=== PATIENT | female | born 1995 | race Caucasian/White ===

== ENCOUNTER 2025-03-14 08:04 | Emergency (ER) | payer OTHER, SELFPAY ==
--- NOTE | ~2025-03-14 | XR_ITS ---
HISTORY: 1st toe nail injury, dropped table on foot today COMPARISON: None TECHNIQUE: 3 views of the left foot were performed FINDINGS: Acute fracture of the distal phalanx of the great toe of the left foot. This is within the tuft, without significant callus formation. Overlying soft tissue swelling is also noted. The base of the fifth metatarsal is intact. No calcaneal spur is noted. No additional soft tissue swelling is present. IMPRESSION: Acute fracture of the distal phalanx of the great toe the left foot, as detailed above Reviewed, dictated and finalized at location A. IMPRESSION: Acute fracture of the distal phalanx of the great toe the left darryl t, as detailed above
[2025-03-14 08:21] VITALS: BP 158/83; PULSE 93; RESP 18; TEMP 36.6; O2SAT 100
--- NOTE | 2025-03-14 08:25 | ED.WOUNDLAC ---
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 States while at work she dropped a heavy wooden table onto the foot. Endorses pain and bleeding from the left great toe. Reports painful ROM. No treatment captain [employer]. Unsure of last tetanus. Related Data Home Medications ?Medication ?Instructions ?Recorded ?Confirmed ?Last Taken ?Type omeprazole 40 mg capsule,delayed 40 mg PO DAILY 03/14/25 03/14/25 Unknown History release Allergies Allergy/AdvReac Type Severity Reaction Status Date / Time No Known Allergies Allergy Verified 03/14/25 08:16 Review of Systems Review of Systems: CONSTITUTIONAL: Denies body aches, fever, chills CARDIOVASCULAR: Denies chest pain, palpitations, or edema. RESPIRATORY: Denies cough or dyspnea. SKIN: Denies rash, itching, or wounds. MUSCULOSKELETAL: reports pain, bleeding from left foot NEUROLOGIC: Denies numbness, tingling, or weakness. All systems reviewed & are unremarkable except as noted in HPI and below PMFSH Comments At time of signature, I have reviewed and agree with nursing past medical, surgical, social and family history unless otherwise noted. Please see nursing chart for further information. There is no relevant family history pertinent to the presenting complaint Exam Narrative: GENERAL: Appears in pain, no distress CHEST: Speaks in full sentences. No respiratory distress. HEART: Regular rate and rhythm. Normal and equal peripheral pulses. EXTREMITIES: Left foot great toenail with traumatic onycholysis proximal nail bed, otherwise nail intact to bed. Active bleeding around base of cuticle. Remaining nail is intact, no nail laceration. 2nd toe with mild swelling and bruising noted as well. No foot swelling or bruising. pulse palpable and equal bilaterally, skin warm, dry, pink. Capillary refill less than 3 seconds. SKIN: Warm, dry NEURO: Alert and oriented x3. PSYCH: Normal mood and affect Course Course Emergency Course: Patient is aware of diagnosis, understands and agrees to treatment plan. Anticipatory guidance given. Patient agrees to follow-up as directed and is aware of reasons to seek care at the emergency department. Portions of this record may have been created with voice recognition software Level of Care: Express Care Visit Vital Signs Vital signs: Vital Signs Temperature 97.9 F 03/14/25 08:21 Pulse Rate 93 03/14/25 08:21 Respiratory Rate 18 03/14/25 08:21 Blood Pressure 158/83 H 03/14/25 08:21 Pulse Oximetry 100 03/14/25 08:21 Temperature 97.9 F 03/14/25 08:21 Pulse Rate 93 03/14/25 08:21 Respiratory Rate 18 03/14/25 08:21 Blood Pressure 158/83 H 03/14/25 08:21 Pulse Oximetry 100 03/14/25 08:21 Reviewed Procedures Laceration left great toe: Date: 03/14/25 Description: other (nail injury) ====== Skin Level ====== ====== Subcutaneous Layer ====== ====== Muscle Layer ====== ====== Tendon Layer ====== Dressing: Foot soaked and cleansed with alcohol. Lidocaine 1% 2mL, local anesthesia. Subungual hematoma noted, pressure applied to digit, moderate amount of bleeding noted. Unsuccessful Attempt to completely reduce the nail under the skin of base. Bleeding is slowed. Dressing applied with RANDALL. MDM - Wound/Laceration MDM Narrative Medical decision making narrative: Discussed physical exam findings and xray. Tuft fx of distal phalanx with traumatic nail onycholysis of proximal nail bed. Foot cleansed and soaked in warm water with skintegrity. Tetanus updated. Discussed with ER and contacted the office of solution mixer ortho Dr Milner. Awaiting return call. IM Ancef 1g given. Unable to reach Dr Milner. Dr Gautam took the call and recommended applying a dressing and f/u with fisher net. RANDALL and telfa applied. Dr Peres will see pt 03/17 at 2:15 Post op shoe and crutches provided. Advised supportive measures and signs/symptoms to go to the ER. Pt is appropriate for outpt treatment and f/u. Differential Diagnosis Differential diagnosis: Likely laceration, abrasion, avulsion of skin and other (contusion, open fracture, closed fracture, onycholysis of nail) Imaging Data Radiologist's impression: Patient: Mattie Carrasco : 1995 MR#: [id number] Age: 29 Acct:[id number] Loc: [facility] ADM Date: 03/14/25Attending Dr: Ordering Physician: Britt Figueroa APRN Date of Service: 03/14/25 Procedure(s): XR foot LT min 3V Accession Number(s): [id number] cc: Britt Figueroa APRN; FORMS ANALYST PHYSICIAN~ HISTORY: 1st toe nail injury, dropped table on foot today COMPARISON: None TECHNIQUE: 3 views of the left foot were performed FINDINGS: Acute fracture of the distal phalanx of the great toe of the left foot. This is within the tuft, without significant callus formation. Overlying soft tissue swelling is also noted. The base of the fifth metatarsal is intact. No calcaneal spur is noted. No additional soft tissue swelling is present. IMPRESSION: Acute fracture of the distal phalanx of the great toe the left foot, as detailed above Discharge Plan Discharge Clinical Impression: Fracture of toe Patient Disposition: Home Condition: Stable Instructions: Antibiotic Form, Toe Fracture (ED) Additional Instructions: Rest, ice and elevate the left foot Motrin 600mg every 8 hours, as needed, for pain (take with food). Tylenol 1000mg every 8 hours. Wear the post op shoe when up with crutches. Use to crutches to reduce bearing weight on the foot. Go to the ER immediately for increased pain, tingling/numbness, swelling, redness, etc Follow up with Dr Peres (fisher net) for further evaluation Appointment scheduled 03/17/25 at 2:15 [address] [facility] [address], [place] [phone] Bring the disc and insurance card. Patient Language: Greenlandic Prescriptions: New amoxicillin-pot clavulanate 875-125 mg tablet 1 tablet PO Q12H 7 Days Qty: 14 0RF Rx Instructions: start 03/15 No Action omeprazole 40 mg capsule,delayed release(DR/EC) 40 mg PO DAILY Follow-up/Referrals: PHYSICIAN,FORMS ANALYST [Primary Care Provider] - Stand Alone Forms: Work/School Release IP Time of Disposition: 11:56
[2025-03-14] MEDS: TETANUS,DIPHTHERIA,AC PERTUSSIS ADULT (0.5 ML) BOOSTRIX IM (08:51)
[2025-03-14] MEDS: LIDOCAINE 1% LOCAL INJ 2 ML AMPUL 4 ML INFILTRATE (08:52)
[2025-03-14] MEDS: ACETAMINOPHEN 500 MG TABLET 1000 MG PO (10:14)
== END 2025-03-14 12:07 | disposition home or self-care (01) ==
PROVIDERS: Emergency Provider Nurse Practitioner Family
DX: S92.422A Displaced fracture of distal phalanx of left great toe, initial encounter for closed fracture (principal); W20.8XXA Other cause of strike by thrown, projected or falling object, initial encounter; Z23 Encounter for immunization
CPT/HCPCS: 73630; 90471; 90715; 96372; 99214; A9270; G0463; J0690; J2003

== ENCOUNTER 2025-04-13 12:23 | Emergency (ER) | payer OTHER, SELFPAY ==
--- NOTE | 2025-04-13 | CONSULT_PTH ---
PATIENT: Mattie Carrasco LOC: [facility] U#:[id number] AGE/SX: 29/F ROOM: RE04/13/[address]: Toni Ren MD : 1995 BED: DIS: 04/13/2025 SPEC #: [id number] RECD: 04/13/25 13:48 STATUS: ANAYA RENathan #: [id number] SWETHA: 04/13/25 00:[address]: Toni Ren DEPT: [facility] Consult RECD BY: Tasha Sullivan MLT ENTERED: 04/13/25 13:48 SP TYPE: Consult OT DR: UNKNOWN,DOCTOR Tissues: A - Peripheral Smear Procedures: Hematology Consult
--- NOTE | ~2025-04-13 | CT_ITS ---
EXAMINATION: CT abdomen pelvis w con, 04/13/2025 13:50 CDT HISTORY: Diffuse abdominal pain COMPARISON: No comparisons available. TECHNIQUE: CT scan of the abdomen and pelvis was performed with contrast. Isovue 300, 92cc injected IV. One or more of the following dose reduction techniques were used: automated exposure control, adjustment of the mA and/or kV according to patient size, use of iterative reconstruction technique. Unless otherwise stated, incidental findings do not require dedicated follow up imaging FINDINGS: CT abdomen: LUNG BASES: The lung bases are clear. The visualized portions of the heart and pericardium are unremarkable. LIVER: The main portal vein is patent. There is no intrahepatic biliary duct dilatation. SPLEEN: Unremarkable, no splenomegaly. KIDNEYS: Right Kidney: There is severe thinning of the right kidney renal cortex with severe probable chronic right-sided hydronephrosis and hydroureter ureter or free fluid in the pelvis. Right kidney the distal ureter is not well appreciated. Left Kidney: Left kidney not identified, no abnormality in the left renal bed. ADRENAL GLANDS: Unremarkable. PANCREAS: Unremarkable. GALLBLADDER/BILIARY: Minimal cholelithiasis. CBD normal. STOMACH AND ESOPHAGUS: Visualized stomach and esophagus within normal limits. BOWEL/MESENTERY: Moderate fecal content, no colitis or diverticulitis. No inflammatory changes noted in the mesentery especially in the right lower quadrant. A normal-appearing appendix is not identified. There are postsurgical changes noted in the bowel with some dilated small bowel loops in the pelvis the largest measuring 3.5 cm with distal decompressed small bowel loops noted. There are some mildly hyperemic distal small bowel loops noted. ADENOPATHY/RETROPERITONEUM: No lymphadenopathy. AORTA/VASCULATURE: Normal caliber aorta. FREE FLUID OR FREE AIR: None. CT pelvis: SOLID ORGANS/REPRODUCTIVE: There is no adnexal mass identified. BLADDER: The bladder is not identified. OSSEOUS STRUCTURES: No acute osseous abnormality.No suspicious lesions. OVERLYING SOFT TISSUES: Unremarkable. IMPRESSION: 1. Probable chronic severe right-sided hydronephrosis and hydroureter ureter, the distal ureter is not well visualized and a distal stricture is not excluded. 2. Dilated loops of small bowel with inflammatory changes noted in the right lower quadrant. Findings are concerning for small bowel obstruction. The appendix is not identified however there is no evidence of acute appendicitis. Follow-up is recommended to assess. Reviewed, dictated and finalized at location A. IMPRESSION: 1. Probable chronic severe right-sided hydronephrosis and hydroureter ureter, t he distal ureter is not well visualized and a distal stricture is not excluded. 2. Dilated loops of small bowel with inflammatory changes noted in the right lo wer quadrant. Findings are concerning for small bowel obstruction. The appendix is not identified however there is no evidence of acute appendicitis. Follow-u p is recommended to assess.
[2025-04-13 12:21] VITALS: BP 133/71; PULSE 115; RESP 18; TEMP 37.1; O2SAT 100
[2025-04-13 13:04] LABS: BEDSIDEPREGUCG Negative (Negative)
[2025-04-13] MEDS: SODIUM CHLORIDE 0.9% IV 2,000 ML 999 ML IV CONT (13:07)
[2025-04-13] MEDS: ONDANSETRON INJ 4 MG/2 ML VIAL IV PUSH (13:07)
[2025-04-13] MEDS: HYDROmorphone HCL INJ (*CRX) 1 MG/ML SYR 0.5 MG IV PUSH (13:07)
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
--- OUTSIDE RECORDS SUMMARY | 2025-04-13 13:08 | XMS_ITS | Clinical Summary ---
Author Organization [facility] Address [address] [place] [address] Care Team Providers Care Per Assessment Nurse Name Role Phone Cheng Koenig MD Primary Care Provider [phone] Allergies No known active allergies Medications albuterol HFA (PROVENTIL HFA,VENTOLIN HFA,PROAIR HFA) 90 mcg/actuation inhaler Inhale 2 puffs every 4 (four) hours as needed 9 Active cyclobenzaprine (FLEXERIL) 5 mg tablet 1 Active PreviDent 5000 Booster Plus 1.1 % paste 1 Active potassium chloride ER 20 mEq CR tablet 1 Active clindamycin (CLINDAGEL) 1 % gel Apply topically 2 (two) times a day 30 g 2 1 Active Additional Information Patient not taking.Reported on 11/08/2022 ergocalciferol (VITAMIN D) 50,000 unit capsuleIndicati ons:Vitamin D deficiency TAKE 1 CAPSULE BY MOUTH 1 TIME A WEEK 12 capsule 3 2 Active Additional Information Patient not taking.Reported on 11/08/2022 testosterone 12.5 mg/ 1.25 gram (1 %) gel in metered-dose pumpIndications :Gender dysphoria Place 50 mg on the skin daily Or 4 pumps. 2 bottles needed per month. 150 g 3 2 Active AMLODIPINE BENZOATE ORAL Take by mouth Ac tive Active Problems Problem Noted Date Diagnosed Date Stage 3 chronic kidney disease 11/08/2022 Hormone replacement therapy (HRT) 04/13/2021 Gender dysphoria 04/13/2021 History of urinary diversion procedure Occlusion of ureter 08/17/2015 Hydronephrosis 08/05/2015 Flank pain 05/17/2015 Absence of kidney 05/17/2015 Malposition of ureter 09/02/2014 Surgical History Surgery Date Site/Laterality Comments SC NEPHRECTOMY W/PRTL URETER ECT OPEN RIB RESCJ RAD Radical Nephrectomy - (Added by Conv) SC PERQ NL/PL LITHOTRP COMPL EX >2 CM SALES REPRESENTATIVE MEATS LOCATIONS Percutaneous Lithotomy For Stone Over 2cm. 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 Family History Medical History Relation Name Comments Hypertension Mother Family history of hypertension - (Added by Conv) Relation Name Status Comments Mother Social History Tobacco Use Types Packs/Day Years Used Date Smoking Tobacco: Never Smokeless Tobacco: Never Alcohol Use Standard Drinks/Week Comments No 0 (1 standard drink = 0.6 oz pur e alcohol) Personal Safety Answer Date Recorded Getting School Help Needed Not on file 09/01 Comments Unknown Sex and Gender Information Value Date Recorded Sex Assigned at Not on file 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 Gender Identity Transgender Male 06/19/2021 8:41 AM CDT Sexual Orientation Not on file Obstetrics History Last Filed Vital Signs Vital Sign Reading Time Taken Comments Blood Pressure 135/82 11/08/2022 10:20 AM CDT Pulse 70 11/08/2022 10:20 AM CDT Temperature 36.7 C (98.1 F) 12/12/2021 8:49 AM CDT Respiratory Rate 18 03/16/2018 3:50 AM CDT Oxygen Saturation 100% 11/09/2020 11:23 AM CDT Inhaled Oxygen Concentration - - Weight 55.4 kg (122 lb 3.2 oz) 11/08/2022 10:20 AM CDT Height 157.5 cm (5' 2) 11/08/2022 10:20 AM CDT Body Mass Index 22.35 11/08/2022 10:20 AM CDT Plan of Treatment Health Maintenance Due Date Last Done Comments Cervical Cancer Screening 1995 Depression Screening 1995 Hepatitis C Screening 1995 Varicella Vaccines (2 of 2 - 2-dose childhood series) 07/26/2002 05/03/2002 Regular Well Visit/Exam 18-64 2015 DTaP/Tdap/Td Vaccine (7 - Td or Tdap) 03/24/2022 03/24/2012, 05/25/2003, 11/11/2000, Additional history exists HPV Vaccines (1 - 3-dose SCDM series) 2024 Influenza Vaccine (#1) 2025 Hepatitis B Screening Completed 04/16/2000 , 10/25/1999, 01/16/1998 Pneumococcal vaccine <65 Aged Out No longer eligible based on patient's age to complete this topic Insurance [employer] OPEN ACCESS [facility] Travel [place] Advance [place] For more information, please contact: [phone] Documents on File Type Date Recorded Patient Drywall Finisher Foreman Expl anation ADVANCE DIRECTIVE 09/02/2018 10:39 AM Adva nce Directive Checklist ADVANCE DIRECTIVE 09/02/2018 10:39 AM Adva nce Directive Checklist ADVANCE DIRECTIVE 03/16/2018 2:46 AM Care Teams Per Assessment Nurse Relationship Specialty Start Date End Date Cheng Koenig MD [address] [place] [address] PCP - General Family Medicine 09/02/18
--- OUTSIDE RECORDS SUMMARY | 2025-04-13 13:08 | XMS_ITS | Encounter Summary ---
Author Organization [facility] Healthcare Address [address] [place] [address] Care Team Providers Care Penciller Name Role Phone Cheng Koenig MD Primary Care Provider [phone] Encounter Details Date Type Department Care Team (Late st Contact Info) Description 11/14/2020 Telephone [facility] [place] [address] Willow Souza, RDMS Social History Tobacco Use Types Packs/Day Years Used Date Smoking Tobacco: Never Smokeless Tobacco: Never Alcohol Use Standard Drinks/Week Comments No 0 (1 standard drink = 0.6 oz pur e alcohol) Comments Unknown Sex and Gender Information Value Date Recorded Sex Assigned at Not on file 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
[2025-04-13 13:19] LABS: Hematocrit 42.1 % (37.0-47.0); Hemoglobin 13.3 g/dL (12.0-15.0); Mean Corpuscular HGB Conc 31.6 g/dl (32-36); Mean Corpuscular Hemoglobin 30.3 pg (26-34); Mean Corpuscular Volume 95.9 fl (80-100); Platelet Count Result 323 k/mm3 (150-375); Red Blood Count 4.39 M/mm3 (4.2-5.4); White Blood Count 9.6 K/mm3 (4.5-10.0)
[2025-04-13 13:25] LABS: Add Urine Microscopic? YES; Appearance Urine Cloudy (Clear); Glucose Urine UA Negative (Negative); Leukocyte Esterase Ur 3+ LEU/UL (Negative); Nitrate Urine Positive (Negative); Non Pathogenic Casts 0-2; Specific Grav Ur 1.008 (1.001-1.035)
[2025-04-13 13:37] LABS: Alanine Aminotransferase 13 U/L (6-35); Albumin Level 4.0 g/dL (3.5-5.1); Alkaline Phosphatase 187 U/L (38-126); Anion Gap 13 mmol/L (4-12); Aspartate Amino Transferase 22 U/L (14-36); Bilirubin,Total 0.9 mg/dL (0.2-1.3); Blood Urea Nitrogen 14 mg/dL (7-17); Calcium 8.7 mg/dL (8.4-10.2); Carbon Dioxide 12 mmol/L (22-30); Chloride 115 mmol/L (98-107); Estimated CRCL calculation 39 ml/min; Estimated Glomerular Filt Rate 39; Glucose 91 mg/dL (65-110); Lipase 55 U/L (23-300); Potassium 4.2 mmol/L (3.4-5.0); Sodium 140 mmol/L (137-145); Total Protein 6.8 g/dL (6.3-8.2)
[2025-04-13 13:45] LABS: Band Neutrophils Percent 22 % (0-6); Lymphocytes Absolute Manual 0.48 K/mm3 (1.1-4.5); Lymphocytes Percent Manual 5 % (18-44); Monocytes Absolute Manual 0.48 K/mm3 (0.1-0.90); Monocytes Percent Manual 5 % (3-9); Neutrophils Absolute Manual 8.64 K/mm3 (1.3-6.7); Neutrophils Percent Manual 68 % (46-73); Schistocytes None Seen; Total Cells Counted 100
--- NOTE | 2025-04-13 13:48 | ED.GENADULT ---
HPI - General Adult General Chief complaint: Abdominal Pain Stated complaint: abd pain Time Seen by Provider: 04/13/25 12:51 History of Present Illness HPI narrative: This is a 29-year-old female with history of artificial bladder and 1 kidney presenting for abdominal pain. Patient says that she woke up from sleep this morning with a sharp pain in the epigastric area that radiates bilaterally down the sides of her belly into her pelvis. Pain is severe and constant. She then a self cathed her artificial bladder through her belly button which is normal for her with 1 L urine. The urine did not look cloudy or have a foul smell. She does not have any flank pain. She had 2 episodes of brown vomit. No diarrhea. No fevers chest pain or difficulty breathing. Last bowel movement was 2 days ago which patient said was a mix of constipation diarrhea. Patient says she is still passing gas. Patient had a toe surgery approximately 2 weeks ago and has pending. She was seen by her surgeon yesterday and everything is healing well without signs of infection. Patients urologist is Dr. Ness at [facility]. He peformed her ureter/bladder reconstruction. Related Data Home Medications ?Medication ?Instructions ?Recorded ?Confirmed ?Last Taken ?Type omeprazole 40 mg capsule,delayed 40 mg PO DAILY 03/14/25 03/14/25 Unknown History release Allergies Allergy/AdvReac Type Severity Reaction Status Date / Time No Known Allergies Allergy Verified 04/13/25 12:42 Exam Narrative: APPEARANCE: Patient appears uncomfortable Head: atraumatic. EYES: EOMI, NOSE: Atraumatic NECK: Trachea midline RESPIRATORY: No increased rate of breathing, clear to auscultation CARDIOVASCULAR: Tachycardic, no peripheral edema ABDOMINAL: Tenderness palpation with voluntary guarding diffusely throughout the abdomen, artificial urostomy attached to artificial bladder through the umbilicus. MUSCULOSKELETAl: No obvious deformities NEURO: Alert. Moving 4/4 extremities SKIN:: Warm, dry. Normal color PSYCHIATRIC: Normal affect Course Vital Signs Vital signs: Vital Signs Temperature 98.7 F 04/13/25 12:21 Pulse Rate 115 H 04/13/25 12:21 Respiratory Rate 18 04/13/25 12:21 Blood Pressure 133/71 04/13/25 12:21 Pulse Oximetry 100 04/13/25 12:21 Oxygen Delivery Room Air 04/13/25 12:21 Temperature 98.7 F 04/13/25 12:21 Pulse Rate 108 H 04/13/25 16:31 Respiratory Rate 20 04/13/25 16:31 Blood Pressure 111/70 04/13/25 16:31 Pulse Oximetry 98 04/13/25 16:31 Oxygen Delivery Room Air 04/13/25 12:21 Medical Decision Making MDM Narrative Medical decision making narrative: -Course: 29-year-old female with 1 bladder a artificial bladder and urostomy through her belly button presenting for diffuse abdominal pain. Pain associated with nausea vomiting. Patient is tachycardic on arrival and given IV fluid resuscitation pain control and antiemetics. CT abdomen pelvis showed chronic appearing cortical changes and hydronephrosis in her 1 remaining kidney. It also showed a dilated dissection or bowel concerning for small bowel obstruction. Case was discussed with Dr. Ness at [facility] given how specialized her urologic reconstruction . Patient will be transferred to [facility] for further management and [facility] will be able to consult on the case. Urine appears infected. She will be started on ceftriaxone. Rest her laboratory studies within normal limits. Creatinine on her last urologic visit was 2.54 and is significantly better today 1.59. After several discussions with the transfer line and urologist the patient then had a large bowel movement and is feeling better. Abdominal exam is now benign. She is still slightly tachycardic. I discussed this with the patient her father who is very familiar with her medical history and he says that she is always tachycardic this is not new for her. They are comfortable going home and following up outpatient with Dr. Ness. -DDX includes but is not limited to: Small-bowel obstruction, gastroenteritis Vital Signs Vital Signs: Vital Signs Temperature 98.7 F 04/13/25 12:21 Pulse Rate 115 H 04/13/25 12:21 Respiratory Rate 18 04/13/25 12:21 Blood Pressure 133/71 04/13/25 12:21 Pulse Oximetry 100 04/13/25 12:21 Oxygen Delivery Room Air 04/13/25 12:21 Temperature 98.7 F 04/13/25 12:21 Pulse Rate 108 H 04/13/25 16:31 Respiratory Rate 20 04/13/25 16:31 Blood Pressure 111/70 04/13/25 16:31 Pulse Oximetry 98 04/13/25 16:31 Oxygen Delivery Room Air 04/13/25 12:21 Lab Data 04/13/25 12:53 04/13/25 12:53 Labs: Lab Results 04/13/25 04/13/25 Range/Units 12:53 13:00 WBC 9.6 (4.5-10.0) K/mm3 RBC 4.39 (4.2-5.4) M/mm3 Hgb 13.3 (12.0-15.0) g/dL Hct 42.1 (37.0-47.0) % MCV 95.9 (80-100) fl MCH 30.3 (26-34) pg MCHC 31.6 L (32-36) g/dl RDW 13.4 (11.5-14.5) % Plt Count 323 (150-375) k/mm3 MPV 10.4 (7.4-10.4) fl Immature Gran % (Auto) Not Reportable Neut % (Auto) Not Reportable Lymph % (Auto) Not Reportable [place] % (Auto) Not Reportable Eos % (Auto) Not Reportable Baso % (Auto) Not Reportable Lymph # (Auto) Not Reportable [place] # (Auto) Not Reportable Eos # (Auto) Not Reportable Baso # (Auto) Not Reportable Abs Immat Gran (auto) Not Reportable Absolute Neuts (auto) Not Reportable Absolute Nucleated RBC Not Reportable Total Counted 100 Neutrophils % (Manual) 68 (46-73) % Band Neutrophils % 22 H (0-6) % Lymphocytes % (Manual) 5 L (18-44) % Monocytes % (Manual) 5 (3-9) % Nucleated RBC % Not Reportable Abs Neuts (Manual) 8.64 H (1.3-6.7) K/mm3 Abs Lymphs (Manual) 0.48 L (1.1-4.5) K/mm3 Abs Monocytes (Manual) 0.48 (0.1-0.90) K/mm3 Platelet Estimate Adequate (Adequate) Schistocytes None seen Sodium 140 (137-145) mmol/L Potassium 4.2 (3.4-5.0) mmol/L Chloride 115 H (98-107) mmol/L Carbon Dioxide 12 L (22-30) mmol/L Anion Gap 13 H (4-12) mmol/L BUN 14 (7-17) mg/dL Creatinine 1.59 H (0.7-1.0) mg/dL Estim Creat Clear Calc 39 ml/min Estimated GFR 39 L (59 - ) Glucose 91 (65-110) mg/dL Calcium 8.7 (8.4-10.2) mg/dL Total Bilirubin 0.9 (0.2-1.3) mg/dL AST 22 (14-36) U/L ALT 13 (6-35) U/L Alkaline Phosphatase 187 H (38-126) U/L Total Protein 6.8 (6.3-8.2) g/dL Albumin 4.0 (3.5-5.1) g/dL Lipase 55 (23-300) U/L Urine Color Yellow (Yellow) Urine Appearance Cloudy H (Clear) Urine pH 6.5 (5.0-9.0) Ur Specific [place] 1.008 (1.001-1.035) Urine Protein 1+ H (Negative) mg/dL Urine Glucose (UA) Negative (Negative) mg/dL Urine Ketones Negative (Negative) mg/dL Ur Blood (Man) 1+ H (Negative) Urine Nitrate Positive H (Negative) Urine Bilirubin Negative (Negative) Urine Urobilinogen 0.2 (<2.0) mg/dL Leukocyte Esterase Rfl 3+ H (Negative) ANALISA/UL Urine RBC 0-2 (0-2) /hpf Urine WBC >100 H (0-3) /hpf Ur Squamous Epith Cells None seen (Few) /hpf Urine Bacteria 4+ H /hpf Urine Casts 0-2 POC Urine HCG, Qual Negative (Negative) Discharge Plan Discharge Clinical Impression: Constipation, UTI (urinary tract infection) Patient Disposition: Home Condition: Stable Instructions: Antibiotic Form, Constipation (DC) Additional Instructions: You seen emergency department for abdominal pain. This was likely due to constipation. You are also found have urinary tract infection. Please complete a course of cefdinir. Please follow-up with Dr. Ness for further management in 3-5 days. If you develop fevers severe abdominal pain or any new or worsening symptoms please return to the ED for re-evaluation. Patient Language: Belarusian Prescriptions: New cefdinir 300 mg capsule 300 mg PO Q12H Qty: 20 0RF No Action omeprazole 40 mg capsule,delayed release(DR/EC) 40 mg PO DAILY amoxicillin-pot clavulanate 875-125 mg tablet 1 tablet PO Q12H 7 Days Qty: 14 0RF Rx Instructions: start 03/15 Follow-up/Referrals: UNKNOWN,DOCTOR [Primary Care Provider]
[2025-04-13 14:05] VITALS: BP 135/77; PULSE 117; RESP 21; O2SAT 100
[2025-04-13] MEDS: cefTRIAXone 1 GM in SODIUM CHLORIDE 0.9% IV 50 ML 100 ML IVPB (15:39)
[2025-04-13 16:31] VITALS: BP 111/70; PULSE 108; RESP 20; O2SAT 98
[2025-04-13 17:37] VITALS: BP 123/66; PULSE 104; RESP 14; O2SAT 98
== END 2025-04-13 17:39 | disposition home or self-care (01) ==
PROVIDERS: Physician Assistant; Emergency Provider Emergency Medicine
DX: N39.0 Urinary tract infection, site not specified (principal); K59.00 Constipation, unspecified
CPT/HCPCS: 36415; 74177; 80053; 81001; 81025; 83690; 85025; 96365; 96366; 96375; 99284; J0696; J1171; J2405; J7030; Q9967

== ENCOUNTER 2025-05-25 10:07 | Emergency (ER) | payer OTHER, SELFPAY ==
[2025-05-25] VITALS (40 sets, daily range): BP systolic 67–132; BP diastolic 43–92; PULSE 60–113; RESP 16–34; TEMP 36.4–37.4; O2SAT 99–100
--- NOTE | ~2025-05-25 | CT_ITS ---
Exam: CT abdomen and pelvis without contrast Clinical History: [Abdominal pain ] Comparison: [ CT abdomen pelvis 04/13/2025] Technique: Multiple axial CT images of the abdomen and pelvis were obtained without IV contrast. Sagittal and coronal reformatted images were obtained. FINDINGS: Lung bases: [Clear ] Liver: [ No mass.] [ No intrahepatic biliary duct dilatation.] Gallbladder: Cholelithiasis. No gallbladder wall thickening or pericholecystic fluid. Common bile duct: [ Normal caliber.] [ No stones.] Spleen: [ Within normal limits.] Pancreas: [ No mass. No pancreatic fluid collection.] Adrenals: [ No masses.] Kidneys: Severe right-sided hydronephrosis. Severe right-sided hydroureter. Left kidney is absent. Lymph nodes: [ No adenopathy in the abdomen or pelvis.] Stomach, small bowel and colon: [ No bowel wall thickening or obstruction.] Anastomotic suture line in bowel in the abdomen. Peritoneum cavity: Small to moderate amount of nonspecific mesenteric fat stranding and fluid scattered throughout the abdomen and pelvis. Bladder: [ Unremarkable.] Osseous structures: [ No acute fracture or destructive lesion.] [ Multilevel degenerative change in the visualized spine.] Abdominal aorta: [ No aneurysm.] Additional findings: [ None of significance.] This study is limited due to the lack of IV and oral contrast. IMPRESSION: 1. This study is limited due to the lack of IV and oral contrast. 2. Severe right-sided hydronephrosis. Severe right-sided hydroureter. Left kidney is absent. Follow-up is recommended. 3. Small to moderate amount of nonspecific mesenteric fat stranding and fluid scattered throughout the abdomen and pelvis. Follow-up is recommended. 4. Cholelithiasis. No gallbladder wall thickening or pericholecystic fluid. If symptoms persist or worsen, consider a CT of the abdomen and pelvis with IV and oral contrast for further assessment. Reviewed, dictated and finalized at location Q. IMPRESSION: 1. This study is limited due to the lack of IV and oral contrast. 2. Severe right-sided hydronephrosis. Severe right-sided hydroureter. Left kidn ey is absent. Follow-up is recommended. 3. Small to moderate amount of nonspecific mesenteric fat stranding and fluid s cattered throughout the abdomen and pelvis. Follow-up is recommended. 4. Cholelithiasis. No gallbladder wall thickening or pericholecystic fluid. If symptoms persist or worsen, consider a CT of the abdomen and pelvis with IV and oral contrast for further assessment.
--- NOTE | ~2025-05-25 | CT_ITS ---
CT abdomen pelvis w con Clinical History: Persistent abdominal pain . Comparison: CT abdomen pelvis 1 hour prior noncontrast Technique: Axial images lung bases to symphysis pubis IV contrast information not listed in PACS Coronal, sagittal reformats CT images acquired with automatic exposure control for dose reduction DLP: 413 mGy-cm Findings: Lung bases: Clear. Visualized heart and pericardium: Unremarkable. Liver: Unremarkable. Gallbladder: Unremarkable. Spleen: Unremarkable. Pancreas: Unremarkable. Adrenal glands: Unremarkable. Kidneys: Right kidney- severe hydronephrosis. Cortical thinning. Ureteral and pelvicalyceal mural enhancement. No renal stones. Left kidney-absent. Distal esophagus/stomach: Unremarkable. Small bowel loops: Normal caliber and wall thickness. Periumbilical ileal conduit. Right lower quadrant neobladder, with mural enhancement. Colon: Diffuse wall thickening. Suture line right hemicolon along mid abdomen. Nodes: No enlarged nodes. Peritoneum: Mild scattered ascites. No free air. Urinary bladder: Not identified. Uterus: Unremarkable. Adnexa: No masses. Bones: No acute bony abnormality. Soft tissues: Unremarkable. Aorta: No aneurysm or dissection. IVC: Unremarkable. Main portal vein/SMV/splenic vein: Patent. IMPRESSION: 1. Chronic severe hydronephrosis right kidney. Possibly due to ureteral anastomosis to neobladder. Otherwise no obstruction noted. 2. Worrisome for ascending infection with ureteritis and pyelitis. Infection of neobladder also not excluded. 3. Colitis. 4. Small volume scattered ascites. Reviewed, dictated and finalized at location R. IMPRESSION: 1. Chronic severe hydronephrosis right kidney. Possibly due to ureteral anasto mosis to neobladder. Otherwise no obstruction noted. 2. Worrisome for ascending infection with ureteritis and pyelitis. Infection o f neobladder also not excluded. 3. Colitis. 4. Small volume scattered ascites.
[2025-05-25] MEDS: ONDANSETRON INJ 4 MG/2 ML VIAL IV PUSH ×2 (10:48→16:26)
[2025-05-25] MEDS: LACTATED RINGERS 1,000 ML 999 ML IV CONT ×2 (10:48→10:57)
--- NOTE | 2025-05-25 10:54 | ED_ITS ---
HPI - General Adult General Chief complaint: Abdominal Pain Stated complaint: Abd Pain Time Seen by Provider: 05/25/25 10:38 History of Present Illness HPI narrative: 29-year-old female presents to the emergency department for evaluation for abdominal pain and altered mental status. Patient had a recent urinary tract infection and has had follow-up with her primary care physician yesterday for that. She was not having any urinary symptoms. Yesterday patient was tachycardic and having high blood pressure. Today patient is having increased nausea and vomiting and has low blood pressure upon arrival to emergency department. Patient does describe lower abdominal pain that started last night. Patient is ill-appearing at time of evaluation. Related Data Allergies Allergy/AdvReac Type Severity Reaction Status Date / Time No Known Allergies Allergy Verified 05/25/25 10:14 Review of Systems 2 Review of Systems: All systems reviewed & are unremarkable except as noted in HPI and below Exam 2 Narrative: APPEARANCE: Ill-appearing HEAD: normocephalic, atraumatic. EYES: PERRLA/EOMI, conjunctivae clear. NOSE: Normal no drainage EARS:TMS clear with good light reflex. THROAT: Pharynx clear, no exudate. NECK: Supple. No adenopathy, no masses. RESPIRATORY: Airway patent, respirations nonlabored. Clear to auscultation bilaterally, no rales, rhonchi, wheezing. CARDIOVASCULAR: Regular rate and rhythm without murmurs rubs or gallops. ABDOMINAL: Soft, nontender, nondistended, normal bowel sounds MUSCULOSKELETAL: Moves all extremities. Strength/ROM intact, No edema, No calf tenderness. NEURO: Alert. Cranial nerves II through XII intact. Good gait. Good coordination SKIN: Warm, dry. Normal Color Course Vital Signs Vital signs: Vital Signs Pulse Rate 87 05/25/25 10:11 Respiratory Rate 23 H 05/25/25 10:11 Blood Pressure 109/77 05/25/25 10:11 Pulse Oximetry 100 05/25/25 10:11 Oxygen Delivery Room Air 05/25/25 10:11 Temperature 99.3 F 05/25/25 17:33 Pulse Rate 113 H 05/25/25 16:46 Respiratory Rate 20 05/25/25 16:46 Blood Pressure 116/71 05/25/25 16:46 Pulse Oximetry 100 05/25/25 16:46 Oxygen Delivery Room Air 05/25/25 10:11 Medical Decision Making [facility] Narrative Medical decision making narrative: 29-year-old female presents emergency department for evaluation for low blood pressure and abdominal discomfort. Patient does suspect she has got a urinary tract infection. Patient is currently afebrile with no leukocytosis hemoglobin of 15.8. Patient does have an acute kidney injury. Urine was concerning for urinary tract infection. After urine was obtained urine culture was ordered and patient was started on IV Rocephin. CT was concerning for hydronephrosis pyelitis and neuritis. Case will be discussed with [facility] with anticipated transfer. On re-evaluation after the 2 L of lactated Ringer's patient is more alert appropriate and able to answer questions more appropriately. Patient does straight cath with a catheter, 14 Mongolian, 3 times a day. Fourteen Mongolian Daniel catheter was placed into the neobladder but balloon was not inflated. Patient reported some minor discomfort when mL of fluid was placed in the balloon. Case was discussed with [facility]rology [facility] and patient was accepted for transfer. I discussed the case with the emergency department physician Dr. Acharya and patient was accepted as an ED to ED transfer. The patient and family were updated the results of the workup and plans for transfer. At re-evaluation prior to transfer patient was approved appearing. Differential Diagnosis Differential Diagnosis: Urinary tract infection, urinary obstruction, ureteral calculi, colitis, diverticulitis Vital Signs Vital Signs: Vital Signs Pulse Rate 87 05/25/25 10:11 Respiratory Rate 23 H 05/25/25 10:11 Blood Pressure 109/77 05/25/25 10:11 Pulse Oximetry 100 05/25/25 10:11 Oxygen Delivery Room Air 05/25/25 10:11 Temperature 99.3 F 05/25/25 17:33 Pulse Rate 113 H 05/25/25 16:46 Respiratory Rate 20 05/25/25 16:46 Blood Pressure 116/71 05/25/25 16:46 Pulse Oximetry 100 05/25/25 16:46 Oxygen Delivery Room Air 05/25/25 10:11 Lab Data Lab results reviewed: Yes I reviewed the patient's lab results. 05/25/25 11:05 05/25/25 11:05 Labs: Lab Results 05/25/25 05/25/25 05/25/25 Range/Units 11:05 13:21 15:08 WBC 7.4 (4.5-10.0) K/mm3 RBC 5.05 (4.2-5.4) M/mm3 Hgb 15.8 H (12.0-15.0) g/dL Hct 52.1 H (37.0-47.0) % MCV 103.2 H (80-100) fl MCH 31.3 (26-34) pg MCHC 30.3 L (32-36) g/dl RDW 16.8 H (11.5-14.5) % Plt Count 550 H D (150-375) k/mm3 MPV 11.1 H (7.4-10.4) fl Immature Gran % (Auto) 0.3 (0-0.5) % Neut % (Auto) 70.6 (45.5-73.1) % Lymph % (Auto) 24.1 (18.3-44.2) % [place] % (Auto) 4.3 (2.6-8.5) % Eos % (Auto) 0.3 (0-4.4) % Baso % (Auto) 0.4 (0.2-1.2) % Lymph # (Auto) 1.79 (0.9-3.2) K/mm3 [place] # (Auto) 0.3 (0.1-0.6) K/mm3 Eos # (Auto) 0.0 (0-0.3) K/mm3 Baso # (Auto) 0.0 (0.0-0.1) K/mm3 Abs Immat Gran (auto) 0.02 (0.00-0.031) K/mm3 Absolute Neuts (auto) 5.3 (1.3-6.7) K/mm3 Absolute Nucleated RBC 0.000 (0.0-0.012) K/mm3 Nucleated RBC % 0.0 (0.0-0.2) % Sodium 139 (137-145) mmol/L Potassium 3.3 L (3.4-5.0) mmol/L Chloride 119 H (98-107) mmol/L Carbon Dioxide < 5 L (22-30) mmol/L Anion Gap (4-12) mmol/L BUN 19 H (7-17) mg/dL Creatinine 2.34 H (0.7-1.0) mg/dL Estim Creat Clear Calc 24 ml/min Estimated GFR 25 L (59 - ) Glucose 143 H (65-110) mg/dL Lactic Acid Cancelled Calcium 8.2 L (8.4-10.2) mg/dL Total Bilirubin 0.5 (0.2-1.3) mg/dL AST 25 (14-36) U/L ALT 13 (6-35) U/L Alkaline Phosphatase 189 H (38-126) U/L Total Protein 7.0 (6.3-8.2) g/dL Albumin 4.0 (3.5-5.1) g/dL Lipase 160 (23-300) U/L Urine Color Yellow (Yellow) Urine Appearance Cloudy H (Clear) Urine pH 6.5 (5.0-9.0) Ur Specific [place] 1.010 (1.001-1.035) Urine Protein 2+ H (Negative) mg/dL Urine Glucose (UA) Negative (Negative) mg/dL Urine Ketones Negative (Negative) mg/dL Ur Blood (Man) 3+ H (Negative) Urine Nitrate Negative (Negative) Urine Bilirubin Negative (Negative) Urine Urobilinogen 0.2 (<2.0) mg/dL Leukocyte Esterase Rfl 3+ H (Negative) ANALISA/UL Urine RBC 11-20 H (0-2) /hpf Urine WBC >100 H (0-3) /hpf Ur Squamous Epith Cells None seen (Few) /hpf Urine Bacteria 4+ H /hpf Urine Casts 0-2 Imaging Data Radiologist's impression: Impressions Abdomen/Pelvis CT 05/25/25 11:29 IMPRESSION: 1. This study is limited due to the lack of IV and oral contrast. 2. Severe right-sided hydronephrosis. Severe right-sided hydroureter. Left kidney is absent. Follow-up is recommended. 3. Small to moderate amount of nonspecific mesenteric fat stranding and fluid scattered throughout the abdomen and pelvis. Follow-up is recommended. 4. Cholelithiasis. No gallbladder wall thickening or pericholecystic fluid. If symptoms persist or worsen, consider a CT of the abdomen and pelvis with IV and oral contrast for further assessment. Abdomen/Pelvis CT 05/25/25 12:19 IMPRESSION: 1. Chronic severe hydronephrosis right kidney. Possibly due to ureteral anastomosis to neobladder. Otherwise no obstruction noted. 2. Worrisome for ascending infection with ureteritis and pyelitis. Infection of neobladder also not excluded. 3. Colitis. 4. Small volume scattered ascites. Discharge Plan Discharge Clinical Impression: Nausea & vomiting, Acute kidney injury, Urinary tract infection Patient Disposition: Acute Care Hospital Condition: Serious Instructions: Antibiotic Form Patient Language: Macedonian Follow-up/Referrals: UNKNOWN,DOCTOR [Primary Care Provider]
[2025-05-25 11:11] LABS: Hematocrit 52.1 % (37.0-47.0); Hemoglobin 15.8 g/dL (12.0-15.0); Immature Granulocyte Percent A 0.3 % (0-0.5); Lymphocytes Absolute Auto 1.79 K/mm3 (0.9-3.2); Mean Corpuscular HGB Conc 30.3 g/dl (32-36); Mean Corpuscular Hemoglobin 31.3 pg (26-34); Mean Corpuscular Volume 103.2 fl (80-100); Nucleated Red Blood Cells Absolute Auto 0.000 K/mm3 (0.0-0.012); Nucleated Red Blood Cells Perc 0.0 % (0.0-0.2); Platelet Count Result 550 k/mm3 (150-375); Red Blood Count 5.05 M/mm3 (4.2-5.4); White Blood Count 7.4 K/mm3 (4.5-10.0)
[2025-05-25 11:27] LABS: Alanine Aminotransferase 13 U/L (6-35); Albumin Level 4.0 g/dL (3.5-5.1); Alkaline Phosphatase 189 U/L (38-126); Aspartate Amino Transferase 25 U/L (14-36); Bilirubin,Total 0.5 mg/dL (0.2-1.3); Blood Urea Nitrogen 19 mg/dL (7-17); Calcium 8.2 mg/dL (8.4-10.2); Carbon Dioxide < 5 mmol/L (22-30); Chloride 119 mmol/L (98-107); Estimated CRCL calculation 24 ml/min; Estimated Glomerular Filt Rate 25; Glucose 143 mg/dL (65-110); Lipase 160 U/L (23-300); Potassium 3.3 mmol/L (3.4-5.0); Sodium 139 mmol/L (137-145); Total Protein 7.0 g/dL (6.3-8.2)
[2025-05-25] MEDS: HYDROmorphone HCL INJ (*CRX) 1 MG/ML SYR 0.5 MG IV PUSH ×2 (12:03→15:52)
[2025-05-25 13:36] LABS: Add Urine Microscopic? YES; Appearance Urine Cloudy (Clear); Glucose Urine UA Negative (Negative); Leukocyte Esterase Ur 3+ LEU/UL (Negative); Nitrate Urine Negative (Negative); Non Pathogenic Casts 0-2; Specific Grav Ur 1.010 (1.001-1.035)
[2025-05-25] MEDS: LACTATED RINGERS 1,000 ML 500 ML IV CONT (13:49)
[2025-05-25] MEDS: cefTRIAXone 1 GM in SODIUM CHLORIDE 0.9% IV 50 ML 100 ML IVPB (15:04)
[2025-05-25] MEDS: ACETAMINOPHEN 500 MG TABLET 1000 MG PO (16:18)
--- NOTE | 2025-05-25 17:11 | PC.NURSE ---
removed rodriguez catheter. Bladder scanner was ay 380, ERP aware.
== END 2025-05-25 17:35 | disposition short-term general hospital (02) ==
LOC: ANHED 11:08
PROVIDERS: Emergency Provider Emergency Medicine
DX: N17.9 Acute kidney failure, unspecified (principal); N39.0 Urinary tract infection, site not specified; R11.2 Nausea with vomiting, unspecified; R18.8 Other ascites; K52.9 Noninfective gastroenteritis and colitis, unspecified; N13.30 Unspecified hydronephrosis; K80.20 Calculus of gallbladder without cholecystitis without obstruction; Z90.5 Acquired absence of kidney
CPT/HCPCS: 36415; 74176; 74177; 74178; 80053; 81001; 83690; 85025; 87040; 87077; 87086; 87186; 96361; 96365; 96375; 96376; 99285; A9270; J0696; J1171; J2405; J7120; Q9967